=== PATIENT | female | born 1965 | race Caucasian/White ===

== ENCOUNTER → 2017-08-20 | Outpatient (CLI) | payer OTHER ==
[~2017-08-20] VITALS: Ht 166.4 cm; Wt 69.5 kg
[~2017-08-20] MED LIST: DAILY VALUE1 EACH PO; DORYX150 MG PO; DOXYCYCLINE HY150 MG PO; FEOSOL325 MG PO; FERROUS SULFAT325 MG PO; LEVOTHYROXINE100 MCG PO; NOHOMEMEDS; OMEPRAZOLE40 M1 PO; SYNTHROID100 MCG PO; TYLENOL WITH C1 EACH PO; VIBRAMYCIN100 MG PO; VITAMIN D35000 UNIT PO
== END | disposition home or self-care (01) ==
LOC: AMB 09:34
DX: Z12.11 Encounter for screening for malignant neoplasm of colon (principal); D12.2 Benign neoplasm of ascending colon; K63.5 Polyp of colon; Z86.010 Personal history of colon polyps; D50.9 Iron deficiency anemia, unspecified; E06.3 Autoimmune thyroiditis; K21.9 Gastro-esophageal reflux disease without esophagitis; E55.9 Vitamin D deficiency, unspecified
CPT/HCPCS: 88305